=== PATIENT | male | born 1940 | race Caucasian/White ===

== ENCOUNTER 2024-03-09 20:58 | Emergency (ER) | payer OTHER | END 2024-03-09 22:02 | disposition home or self-care (01) | LOC: CSHERS 20:58 | DX: T50.995A Adverse effect of other drugs, medicaments and biological substances, initial encounter (principal); I48.91 Unspecified atrial fibrillation; R42 Dizziness and giddiness; Z79.899 Other long term (current) drug therapy | CPT/HCPCS: 93005 ==